=== PATIENT | male | born 1990 | race Caucasian/White ===

== ENCOUNTER 2019-12-05 20:34 | Emergency (ER) | payer BC ==
--- NOTE | 2019-12-05 21:01 | ED.PDOC ---
History of Present Illness - General Chief Complaint: General Stated Complaint: bodyaches, sore throat Time Seen by Provider: 12/05/19 20:56 Source: patient, RN notes reviewed, Vital Signs reviewed Exam Limitations: no limitations - History of Present Illness Initial Comments: This is a 29-year-old healthy male presenting to the emergency department with 3 days of body aches, malaise, sore throat as well as anosmia and dysgeusia that began yesterday. He denies any fevers. He does report "tightness in his chest when taking a deep breath ", but denies any chest pain. He denies any shortness of breath He does report some associated chills. No vomiting, diarrhea. He denies any Covid contacts. No recent traveling. He does work at [employer]. Allergies/Adverse Reactions: Allergies salmon Allergy (Uncoded 12/05/19 21:11) Home Medications: Ambulatory Orders Albuterol Inhaler [Ventolin Hfa Inhaler] 2 - 4 puff INH Q4H PRN #1 inh 12/05/19 Benzonatate Perles [Tessalon Perles] 100 mg PO Q6HR PRN #20 cap 12/05/19 Ondansetron Odt [Zofran ODT] 8 mg PO Q6H PRN #12 tab 12/05/19 Review of Systems - Review of Systems Constitutional: States: chills. Denies: fever EENTM: States: nose congestion, throat pain, other - Anosmia and dysgeusia Respiratory: States: cough, other. Denies: short of breath, wheezing Cardiology: Denies: chest pain, edema Gastrointestinal/Abdominal: Denies: diarrhea, nausea Genitourinary: Denies: dysuria, hematuria Musculoskeletal: Denies: back pain, joint pain, muscle pain, neck pain Skin: States: no symptoms reported Neurological: States: no symptoms reported Physical Exam - Physical Exam General Appearance: Alert, Comfortable, No apparent distress, Well Developed, Well Groomed, Well Hydrated, Well Nourished Ears, Nose, Throat: hearing grossly normal, normal ENT inspection Neck: non-tender, full range of motion, supple Respiratory: chest non-tender, lungs clear, normal breath sounds, no respiratory distress, no accessory muscle use Cardiovascular/Chest: normal peripheral pulses, regular rate, rhythm, no edema, no gallop, no JVD, no murmur Gastrointestinal/Abdominal: non tender, soft, no organomegaly Extremity: normal range of motion, non-tender, normal inspection Neurologic: no motor/sensory deficits, alert, normal mood/affect, oriented x 3 Skin Exam: normal color, warm/dry Progress - Progress Progress: 12/05/19 21:15 Patient reports "tightness in his chest when taking a deep breath".I offered a chest x-ray, patient refused. Discussed plan for discharge home. Recommended quarantine at home until Covid results are back. If test is positive, recommended 14-day quarantine or return to work according to his employers return to work policy. If test is negative, he will also need to follow-up with his employer regarding return to work instructions. Strict warnings given to return the emergency room for shortness of breath, vomiting, changes in mental status, or any other concerns. Stressed importance of facemask and hand hygiene. DDx: COVID-19 versus other viral URI MDM: Well-appearing, well-hydrated, no respiratory distress. Symptoms certainly concerning for COVID-19 infection. O2 sats normal. No vomiting. Tolerating p.o. No occasion for admission or extensive lab work-up. Viral panel sent and pending. Covid instructions and ER warnings were given Johny Coy DO [id number] Departure - Departure Clinical Impression: Viral upper respiratory tract infection with cough, Suspected COVID-19 virus infection Time of Disposition: 21:01 Disposition: Discharge to Home or Self Care Condition: Good Departure Forms: ED Discharge - Pt. Copy, Patient Portal Self Enrollment Instructions: Coronavirus Disease 2019 (COVID-19) Diet: resume usual diet Activity: increase activity as tolerated Prescriptions: Benzonatate Perles [Tessalon Perles] 100 mg PO Q6HR PRN #20 cap PRN Reason: Cough Albuterol Inhaler [Ventolin Hfa Inhaler] 2 - 4 puff INH Q4H PRN #1 inh PRN Reason: Shortness Of Breath Ondansetron Odt [Zofran ODT] 8 mg PO Q6H PRN #12 tab PRN Reason: Nausea Home Medications: Ambulatory Orders Albuterol Inhaler [Ventolin Hfa Inhaler] 2 - 4 puff INH Q4H PRN #1 inh 12/05/19 Benzonatate Perles [Tessalon Perles] 100 mg PO Q6HR PRN #20 cap 12/05/19 Ondansetron Odt [Zofran ODT] 8 mg PO Q6H PRN #12 tab 12/05/19
[2019-12-05 21:11] VITALS: O2SAT 98
[2019-12-05 21:14] VITALS: BP 146/98
[2019-12-05 21:18] VITALS: TEMP 98.7
== END 2019-12-05 21:19 | disposition home or self-care (01) ==
LOC: ER 20:34
DX: U07.1 COVID-19 (principal); J06.9 Acute upper respiratory infection, unspecified; Z20.828 Contact with and (suspected) exposure to other viral communicable diseases